=== PATIENT | female | born 1945 | race Hispanic/Latino ===

== ENCOUNTER 2016-11-29 19:35 | Observation (INO) | payer MEDICARE, OTHER ==
[2016-11-29 20:34] LABS: HEMATOCRIT 40.8 % (36.0-48.0); MEAN CELL VOLUME 88.1 fL (80.0-105.0); MEAN CORPUSCULAR HEMOGLOBIN 31.5 pg (25.0-35.0); MEAN CORPUSCULAR HGB CONC 35.8 g/dl (31.0-37.0); MEAN PLATELET VOLUME 11.2 fl (7.0-11.0); RED CELL DISTRIBUTION WIDTH 13.4 % (11.5-14.5)
--- NOTE | 2016-11-29 20:34 | ED PDOC ---
Arrival/HPI - General Chief Complaint: Chest Pain Time Seen by Provider: 11/29/16 19:43 Historian: Patient - History of Present Illness Narrative History of Present Illness (Text): 11/29/16 20:23 A 71 year old female, whose past medical history includes CAD with cardiac stents and diverticulitis, presents to the emergency department complaining of intermittent chest pressure today. Patient notes shortness of breath and dyspnea on exertion. Patient reports while recently in [place] she was diagnosed and treated for diverticulitis. Patient was placed on medications Levaquin and Flagyl. Patient reports she has experienced similar respiratory symptoms before and diagnosed with a blocked coronary artery. Patient denies any fever, chills, nausea, vomiting, diarrhea, abdominal pain, urinary symptoms , back pain or any other complaints. PMD: Dr. Ambriz Time/Duration: Other (Today) Symptom Course: Unchanged Quality: Other Context: Home Past Medical History - Provider Review Nursing Documentation Reviewed: Yes - Cardiac Hx Pacemaker: No - Pulmonary Hx Respiratory Disorders: No - Neurological Hx Neurological Disorder: No - HEENT Hx HEENT Disorder: Yes (LASER SX TO LOWER LEFT LID) - Renal Hx Renal Disorder: Yes Hx Kidney Stones: Yes - Endocrine/Metabolic Hx Diabetes Mellitus Type 2: Yes - Hematological/Oncological Hx Blood Disorders: No Hx Blood Transfusions: No - Integumentary Hx Dermatological Disorder: Yes Other/Comment: RASH - Musculoskeletal/Rheumatological Hx Musculoskeletal Disorders: Yes Hx Back Pain: Yes - Gastrointestinal Hx Gastrointestinal Disorders: Yes Hx Diverticulitis: Yes Hx Gall Bladder Disease: Yes (CHOLECYSTECTOMY) - Genitourinary/Gynecological Hx Genitourinary Disorders: Yes (TUBAL LIGATION,4 D AND C'S) - Psychiatric Hx Psychophysiologic Disorder: No Hx Substance Use: No - Surgical History Hx Cholecystectomy: Yes Hx Coronary Stent: Yes Hx Tubal Ligation: Yes - Anesthesia Hx Anesthesia Reactions: No Hx Malignant Hyperthermia: No - Suicidal Assessment Feels Threatened In Home Enviroment: No Family/Social History - Physician Review Nursing Documentation Reviewed: Yes Family/Social History: No Known Family HX Smoking Status: Never Smoked Hx Alcohol Use: Yes (WINE OCCASIONALLY) Hx Substance Use: No Allergies/Home Meds Allergies/Adverse Reactions: Allergies No Known Allergies Allergy (Verified 11/29/16 19:39) Home Medications: Home Meds Medication Instructions Recorded Confirmed Hydrocodone/Acetaminophen [[place] 1 tab PO Q4 PRN 11/29/16 11/29/16 5-325 Tablet] RX: Ondansetron [Zofran Tab] 4 mg PO Q6 11/29/16 11/29/16 RX: metroNIDAZOLE [Flagyl] 500 mg PO TID 11/29/16 11/29/16 levoFLOXacin [Levaquin] 500 mg PO DAILY 11/29/16 11/29/16 Review of Systems - Physician Review All systems were reviewed & negative as marked: Yes - Review of Systems Constitutional: absent: Fevers, Night Sweats Respiratory: SOB (/ASHBY) Cardiovascular: Chest Pain Gastrointestinal: absent: Abdominal Pain, Diarrhea, Nausea, Vomiting Genitourinary Female: absent: Dysuria, Frequency, Hematuria, Urine Output Changes Musculoskeletal: absent: Back Pain Physical Exam Vital Signs Reviewed: Yes Vital Signs Temp Pulse Resp BP Pulse Ox 11/29/16 22:02 67 16 150/80 100 11/29/16 19:44 98.4 F 67 16 166/79 H 99 Temperature: Afebrile Blood Pressure: Hypertensive Pulse: Regular Respiratory Rate: Normal Appearance: Positive for: Well-Appearing, Non-Toxic, Comfortable Pain Distress: None Mental Status: Positive for: Alert and Oriented X 3 - Systems Exam Head: Present: Atraumatic, Normocephalic Pupils: Present: PERRL Extroacular Muscles: Present: EOMI Conjunctiva: Present: Normal Mouth: Present: Moist Mucous Membranes Neck: Present: Normal Range of Motion Respiratory/Chest: Present: Clear to Auscultation, Good Air Exchange. No: Respiratory Distress, Accessory Muscle Use Cardiovascular: Present: Regular Rate and Rhythm, Normal S1, S2. No: Murmurs Abdomen: Present: Normal Bowel Sounds. No: Tenderness, Distention, Peritoneal Signs Back: Present: Normal Inspection Upper Extremity: Present: Normal Inspection. No: Cyanosis, Edema Lower Extremity: Present: Normal Inspection. No: Edema Neurological: Present: GCS=15, CN II-XII Intact, Speech Normal Skin: Present: Warm, Dry, Normal Color. No: Rashes Psychiatric: Present: Alert, Oriented x 3, Normal Insight, Normal Concentration Medical Decision Making ED Course and Treatment: 11/29/16 20:23 Impression: A 71 year old female with chest pressure and associates shortness of breath/ dyspnea on exertion. Physical exam unremarkable Plan: -- Chest xray -- EKG -- Labs -- Reassess and disposition Progress Notes: 11/29/16 21:30 Reviewed EKG, NSR at 63 bpm. Lateral T wave changes. 11/29/16 21:40 Reviewed radiology, Chest X-ray shows no acute processes. 11/29/16 22:52 Case discussed with AUTO BUMPER MECHANIC Nicolle Chan, covering for Dr. Ambriz, who is aware and agrees with plan. Pt will go to Telemetry observation for chest pain. Requests Dr. Moss on consult. - Lab Interpretations Lab Results: 11/29/16 20:25 11/29/16 20:25 Lab Results 11/29/16 20:25: WBC 6.0, RBC 4.63, Hgb 14.6, Hct 40.8, MCV 88.1, MCH 31.5, MCHC 35.8, RDW 13.4, Plt Count 180, MPV 11.2 H 11/29/16 20:25: Sodium 138, Potassium 4.8, Chloride 103, Carbon Dioxide 27, Anion Gap 13, BUN 13, Creatinine 0.7, Est GFR ( Amer) > 60, Est GFR (Non- Af Amer) > 60, Random Glucose 110, Calcium 10.0, Total Bilirubin 0.9, AST 50 H, ALT 35, Alkaline Phosphatase 90, Lactate Dehydrogenase 801 H, Total Creatine Kinase 104, Troponin I 0.03 D, NT-Pro-B Natriuret Pep 110, Total Protein 8.0, Albumin 4.3, Globulin 3.8, Albumin/Globulin Ratio 1.1 11/29/16 20:25: PT 18.5 H, INR 1.71 H, APTT 28.5 I have reviewed the lab results: Yes - RAD Interpretation Radiology Orders: 11/29/16 20:18 CHEST PORTABLE [RAD] Stat Emergency Veterinary Technician: ED Physician - EKG Interpretation Interpreted by ED Physician: Yes Type: 12 lead EKG - Medication Orders Current Medication Orders: Discontinued Medications Aspirin (Aspirin) 325 mg PO ONCE STA Stop: 11/29/16 21:59 Last Admin: 11/29/16 22:06 Dose: 325 mg - Scribe Statement The provider has reviewed the documentation as recorded by the Reyes Stuart Provider Scribe Attestation: All medical record entries made by the Laineyibdamien were at my direction and personally dictated by me. I have reviewed the chart and agree that the record accurately reflects my personal performance of the history, physical exam, medical decision making, and the department course for this patient. I have also personally directed, reviewed, and agree with the discharge instructions and disposition. Disposition/Present on Arrival - Present on Arrival Any Indicators Present on Arrival: No History of DVT/PE: No History of Uncontrolled Diabetes: No Urinary Catheter: No History of Decub. Ulcer: No History Surgical Site Infection Following: None - Disposition Have Diagnosis and Disposition been Completed?: Yes Diagnosis: Chest pain Disposition: HOSPITALIZED Disposition Time: 22:01 Patient Plan: Observation Patient Problems: Current Active Problems Problem Status Onset Chest pain Acute Condition: STABLE
[2016-11-29 20:45] LABS: ALB/GLOB RATIO 1.1 (1.1-1.8); ALKALINE PHOSPHATASE 90 U/L (38-133); ALT/SGPT 35 U/L (7-56); AST/SGOT 50 U/L (15-39); BILIRUBIN,TOTAL 0.9 mg/dL (0.2-1.3); BLOOD UREA NITROGEN 13 mg/dL (7-21); CARBON DIOXIDE 27 mmol/L (21-33); CHLORIDE 103 mmol/L (98-107); GFR AFRICAN-AMERICAN > 60; GLUCOSE,RANDOM 110 mg/dL (70-110); SODIUM 138 mmol/L (132-148)
[2016-11-29 20:47] LABS: INR 1.71 (0.93-1.08); PARTIAL THROMBOPLASTIN TIME 28.5 Seconds (23.7-30.8)
[2016-11-29 20:49] LABS: POTASSIUM 4.8 mmol/L (3.6-5.0)
[2016-11-29 20:57] LABS: TROPONIN I 0.03 ng/mL
[2016-11-30 00:09] VITALS: BMI 33.5
--- NOTE | 2016-11-30 08:36 | RAD ---
HISTORY: Chest pain COMPARISON: 09/08/2015 FINDINGS: LUNGS: The lungs are clear. PLEURA: No significant pleural effusion identified, no pneumothorax apparent. CARDIOVASCULAR: Normal. OSSEOUS STRUCTURES: No significant abnormalities. VISUALIZED UPPER ABDOMEN: Normal. OTHER FINDINGS: A broad-based opacity in the right costophrenic angle is likely related to soft tissue shadow. IMPRESSION: No acute findings. A broad-based opacity in the right costophrenic angle is likely related to soft tissue shadow. However repeat PA and lateral radiographs are recommended for further evaluation and to exclude pleural-based pathology.
[2016-11-30] MEDS ORDERED: levoFLOXacin 500 MG TAB PO SCH (10:00)
[2016-11-30] MEDS: cefTRIAXone 1 gm 1 GM/100 ML BAG IVPB SCH (10:10)
--- NOTE | 2016-11-30 10:22 | HP ---
HISTORY OF PRESENT ILLNESS: A 71-year-old white female with history of CAD, found to diverticulitis in the past. The patient recently was on vacation in [place] when she developed left lower quadrant pain, was found on CT to have diverticulitis and was put on Levaquin and Flagyl. The patient came ho me and developed some chest pressure and chest discomfort. She has a history of stents in the past, last time in 08/2016. The patient came to the Emergency Room, was admitted with indeterminate troponi n 0.03. PHYSICAL EXAMINATION: KELI SIGNS: Stable. CHEST: Clear to auscultation and percussion. HEART: Regular sinus rhythm. No S3 or murmurs. ABDOMEN: Obese, but benign. There is some mild tenderness in the left lower quadrant. EXTREMITIES: Without cyanosis, clubbing or edema. NEUROLOGIC: Grossly intact. IMPRESSION: A 71-year-old white female presenting with a recent history of several days of diverticu litis and history of coronary artery disease, presenting with chest discomfort and chest pressure, ru le out coronary artery disease. Riaz Ambriz MD cc: [id number] TT: 11/30/2016 10:21:18 fl
--- NOTE | 2016-11-30 11:24 | CON ---
DATE: 11/30/2016 HISTORY OF PRESENT ILLNESS: The patient is a 71-year-old woman who presents with intermittent abdomi nal pain. In addition, she has complained of intermittent substernal pressure over the past several weeks which is consistent with her symptoms when she came prior to her stenting of her LAD. The patient suffers from hypercholesterolemia which she stopped taking Lipitor because of leg cramps. In addition, she has borderline diabetes mellitus. She denies shortness of breath. SOCIAL HISTORY: Denies smoking. She has been taking her Plavix. REVIEW OF SYSTEMS: No addition to the ones described above. PHYSICAL EXAMINATION: VITAL SIGNS: Blood pressure is 118/60, the heart rate is in the 60s. NECK: Negative JVD. LUNGS: Without rales. HEART: Reveals S1, S2. EXTREMITIES: Without edema. EKG shows normal sinus rhythm with diffuse ST-T changes. LABORATORIES: 14.6. Chemistries: Troponins are 0.03. IMPRESSION: 1. Unstable angina. 2. Coronary artery disease. 3. History of percutaneous transluminal coronary angioplasty and stent in the past. 4. Borderline diabetes mellitus. 5. Hypercholesterolemia. Given these findings, the patient's chest pain symptoms with her description and similarity to her pr evious symptoms consistent with coronary artery disease, would indicate that a repeat catheterization may be warranted. I have discussed the risks, benefits with the patient in detail. She is agreeabl e. We will schedule for catheterization in the morning. Matthew Moss MD cc: [id number] TT: 11/30/2016 11:23:43 Confirmation # [id number] Dictation # [id number] tn
--- NOTE | 2016-11-30 16:22 | CARD ---
APPROVED REPORT EKG Measurement Heart [id number] <Conclusion> Normal sinus rhythm Moderate voltage criteria for LVH, may be normal variant T wave abnormality, consider lateral ischemia Abnormal ECG
--- NOTE | 2016-11-30 23:09 | CP.PCM.PN ---
Subjective - Date & Time of Evaluation Date of Evaluation: 11/30/16 Time of Evaluation: 23:08 - Subjective Subjective: Patient was seen at bedside for complaint of head ache, is mild for past one hour, in frontal sinus area and occipital area, thinks that it is from laying down in bed , denies history of any head injury in the past , denies nausea, dizziness, eye symptoms , ear symptoms, sinus problems, tooth ache, neck pain, paraesthesia or weakness. Medical record was reviewed. This 71 year old white woman was admitted chest pressure/discomfort. Has PMH of CAD,HLD, obesity ,diverticulitis. Objective - Vital Signs/Intake and Output Vital Signs (last 24 hours): Temp Pulse Resp BP Pulse Ox 98.2 F 64 18 141/72 98 11/30/16 18:00 11/30/16 18:00 11/30/16 18:00 11/30/16 18:00 11/30/16 05:08 Intake and Output: 11/30/16 12/01/16 18:59 06:59 Intake Total 660 Output Total 500 Balance 160 - Medications Medications: Current Medications Aspirin (Ecotrin) 81 mg PO DAILY [facility] Last Admin: 11/30/16 10:08 Dose: 81 mg Clopidogrel Bisulfate (Plavix) 75 mg PO DAILY [facility] Last Admin: 11/30/16 10:08 Dose: 75 mg Ceftriaxone Sodium (Rocephin 1 Gram Ivpb) 1 gm in 100 mls @ 100 mls/hr IVPB DAILY [facility] PRN Reason: Protocol Last Admin: 11/30/16 10:10 Dose: 100 mls/hr Metronidazole (Flagyl) 500 mg PO TID [facility] PRN Reason: Protocol Stop: 12/02/16 10:01 Last Admin: 11/30/16 17:28 Dose: 500 mg Ondansetron HCl (Zofran Tab) 4 mg PO Q6H PRN PRN Reason: Nausea/Vomiting - Labs Labs: PT 18.5 Seconds (9.9-11.8) H 11/29/16 20:25 INR 1.71 (0.93-1.08) H 11/29/16 20:25 APTT 28.5 Seconds (23.7-30.8) 11/29/16 20:25 - Constitutional Appears: Well, No Acute Distress - Head Exam Head Exam: ATRAUMATIC, NORMAL INSPECTION, NORMOCEPHALIC - Eye Exam Eye Exam: Normal appearance - ENT Exam ENT Exam: Normal External Ear Exam - Neck Exam Neck Exam: Normal Inspection - Respiratory Exam Respiratory Exam: NORMAL BREATHING PATTERN - Cardiovascular Exam Cardiovascular Exam: absent: JVD - GI/Abdominal Exam GI & Abdominal Exam: absent: Distended - Rectal Exam Rectal Exam: Deferred - Extremities Exam Extremities Exam: Normal Inspection - Back Exam Back Exam: CVA tenderness (L) - Neurological Exam Neurological Exam: Alert, Oriented x3 - Psychiatric Exam Psychiatric exam: Normal Affect, Normal Mood - Skin Skin Exam: Normal Color Assessment and Plan - Assessment and Plan (Free Text) Assessment: Head ache-Tension. Chest pressure. CAD. History of diverticulitis. HLD. Obesitiy. Plan: Tylenol 650 mg PO x 1. Continue present management.
[2016-12-01 06:10] VITALS: O2SAT 99
[2016-12-01] MEDS ORDERED: Lidocaine 2% Inj (20ml) ONE (07:39)
[2016-12-01] MEDS ORDERED: Iodixanol 320 MG/ML 200 ML BOTTLE IV ONE (07:40)
[2016-12-01] MEDS ORDERED: Iodixanol 320 MG/ML 100 ML BOTTLE IV ONE (07:40)
[2016-12-01] MEDS ORDERED: Midazolam 2 MG/2 ML VIAL ONE ×2 (08:27→08:56)
[2016-12-01] MEDS ORDERED: Iohexol 350mgl/ml 50 ML ONE (08:56)
[2016-12-01] MEDS ORDERED: Sodium Chloride 0.9% 1,000 ML IV SCH (09:45)
--- NOTE | 2016-12-01 10:01 | PN ---
DATE: 12/01/2016 SUBJECTIVE: A 71-year-old white female admitted to the hospital with diverticulitis and chest disco mfort. The patient had CAD and stent in the past. The patient was seen in consultation by Dr. Matthew Moss. It was felt, because the symptomatology was the same as before, although the troponins were n egative, the patient will be sent to the ammunition assembly ii laborer today. The patient is without complaints. No shor tness of breath, no chest pain. PHYSICAL EXAMINATION: ABDOMEN: Soft. VITAL SIGNS: She is afebrile. Vital signs are stable. Plan is for cath and possible discharge if no intervention is needed and to continue p.o. antibiotics for resolution of diverticulitis. Riaz Ambriz MD cc: [id number] TT: 12/01/2016 10:00:34 Confirmation # [id number] Dictation # [id number] tn
[2016-12-01] MEDS: cefTRIAXone 1 gm 1 GM/100 ML BAG IVPB SCH (10:31)
--- NOTE | 2016-12-01 11:03 | CARDCATH ---
PROCEDURE DATE: 12/01/2016 HISTORY: The patient is a 71-year-old woman with a history of PTCA and stent of an LAD in the past w ho presents with substernal chest pain on minimal exertion associated with shortness of breath. Because of this, cardiac catheterization was recommended. PROCEDURE: Left heart catheterization with coronary angiography and left ventriculogram. The right femoral artery was cannulated with a 6-[place] sheath. There were no complications. Findings on catheterization revealed a left ventricle that contracted normally. Estimated ejection f raction is 70%. Supra-aortic valvular injection revealed 1+ aortic insufficiency. Her coronary anatomy revealed a right dominant circulation. The RCA was free of significant disease. Left main artery was unremarkable. The LAD revealed intimal irregularities with a patent stent in the proximal/mid portion. The circumflex artery and obtuse marginal branches were free of significant disease. Angio-Seal was used to close the femoral artery site. The patient tolerated the procedure well. In summary, the procedure revealed a patent stent in the mid/proximal LAD. LV function is normal with an EF of 70%. 1+ AI was noted. Given these findings, the patient's symptoms are not cardiac in origin. Her stent is widely patent. Her echocardiogram revealed no pulmonary hypertension. We will start the patient on exercise program with cardiac rehabilitation. Matthew Moss MD cc: [id number] TT: 12/01/2016 11:02:17 myrna
[2016-12-01 17:40] VITALS: PULSE 60; RESP 20; TEMP 98.7
[2016-12-01 17:51] VITALS: BP 147/77
--- NOTE | 2016-12-02 10:57 | DS ---
The patient is a 71-year-old white female admitted to the hospital with chest discomfort, shortness o f breath. The patient has history of a stent in the past. The patient was taken to woven label designer by Dr. Matthew Moss. She had had no change in her catheterization. The patient was also admitted with right lower quadrant diverticulitis. The patient felt that possibly Levaquin contributed to her chest disc omfort. The catheterization showed a wide open patent stent. Vital signs are stable. The patient w as continued on IV antibiotics for her diverticulitis. She was discharged home on p.o. antibiotics e xcept not Levaquin. The patient will follow as an outpatient. FINAL DISCHARGE DIAGNOSES: Noncardiac chest pain, diverticulitis. Riaz Ambriz MD cc: [id number] TT: 12/02/2016 10:56:39 ne
== END 2016-12-01 18:14 | disposition home or self-care (01) ==
LOC: ED 19:35 → ERH 21:58 → 2RNO 23:38 → 2RSO 12-01 09:45
PROVIDERS: ADMIT Internal Medicine; ATTEND Internal Medicine
DX: I25.110 Atherosclerotic heart disease of native coronary artery with unstable angina pectoris (principal); I35.1 Nonrheumatic aortic (valve) insufficiency; R07.89 Other chest pain; K57.92 Diverticulitis of intestine, part unspecified, without perforation or abscess without bleeding; E78.00 Pure hypercholesterolemia, unspecified; R73.03 Prediabetes; E78.5 Hyperlipidemia, unspecified; E66.9 Obesity, unspecified; Z68.32 Body mass index [BMI] 32.0-32.9, adult; G44.209 Tension-type headache, unspecified, not intractable; Z95.5 Presence of coronary angioplasty implant and graft
CPT/HCPCS: 36415; 71010; 80053; 82550; 82948; 83615; 83880; 84484; 85027; 85610; 85730; 93005; 93458; 93567; 96365; 96376; 99152; 99285; C1760; C1769; C2629; G0378; J0696; J1644; J2250; J3010; J7030; J7040; Q9967

== ENCOUNTER 2016-12-05 21:36 | Observation (INO) | payer MEDICARE, OTHER ==
--- NOTE | 2016-12-05 22:08 | ED PDOC ---
Arrival/HPI - General Chief Complaint: Chest Pain Time Seen by Provider: 12/05/16 21:40 Historian: Patient - History of Present Illness Narrative History of Present Illness (Text): 12/05/16 22:07 Tosin Price is a 71 year old female, with a past medical history of CAD, hypertension, diabetes and diverticulitis, presents to the emergency department complaining of chest discomfort throughout the day. Patient describes discomfort as feeling of "fullness" in the chest. States symptoms mildly relieved around 7:30 pm but recurred again after eating dinner consisting of chicken noodle soup and bread. Patient was advised by , patient's foundation engineer, to present to emergency department for further evaluation. Patient was discharged from the hospital last week when she was admitted for chest pain. Denies any fever, chills, headache, dizziness, shortness of breath, nausea, vomiting, diarrhea, urinary symptoms, or any other complaints at this time. PMD: Dr. Ambriz Sports Nutritionist: Dr. Moss Time/Duration: Other (entire day today ) Symptom Onset: Gradual Symptom Course: Unchanged Severity Level: Mild Activities at Onset: Light Past Medical History - Provider Review Nursing Documentation Reviewed: Yes - Cardiac Hx Cardiac Disorders: Yes Hx Hypertension: Yes Hx Pacemaker: No - Pulmonary Hx Respiratory Disorders: No - Neurological Hx Neurological Disorder: No - HEENT Hx HEENT Disorder: Yes (LASER SX TO LOWER LEFT LID) - Renal Hx Renal Disorder: Yes Hx Kidney Stones: Yes - Endocrine/Metabolic Hx Diabetes Mellitus Type 2: Yes - Hematological/Oncological Hx Blood Transfusions: No - Integumentary Hx Dermatological Disorder: No - Musculoskeletal/Rheumatological Hx Falls: No - Gastrointestinal Hx Gastrointestinal Disorders: Yes Hx Diverticulitis: Yes Hx Gall Bladder Disease: Yes (CHOLECYSTECTOMY) - Genitourinary/Gynecological Hx Genitourinary Disorders: Yes (TUBAL LIGATION,4 D AND C'S) - Psychiatric Hx Psychophysiologic Disorder: No Hx Substance Use: No - Surgical History Hx Cardiac Catheterization: Yes Hx Cholecystectomy: Yes Hx Coronary Stent: Yes - Anesthesia Hx Anesthesia Reactions: No Hx Malignant Hyperthermia: No - Suicidal Assessment Feels Threatened In Home Enviroment: No Family/Social History - Physician Review Nursing Documentation Reviewed: Yes Family/Social History: No Known Family HX Smoking Status: Never Smoked Hx Alcohol Use: Yes (wine occassionally) Hx Substance Use: No Allergies/Home Meds Allergies/Adverse Reactions: Allergies No Known Allergies Allergy (Verified 12/06/16 06:43) Review of Systems - Physician Review All systems were reviewed & negative as marked: Yes - Review of Systems Constitutional: Normal. absent: Fatigue, Fevers Respiratory: absent: SOB, Cough, Sputum Cardiovascular: Chest Pain. absent: Palpitations Gastrointestinal: absent: Abdominal Pain, Diarrhea, Nausea, Vomiting Genitourinary Female: Normal Neurological: Normal. absent: Headache, Dizziness Psychiatric: Normal Physical Exam Vital Signs Reviewed: Yes Vital Signs Temp Pulse Resp BP Pulse Ox 12/06/16 03:33 62 99 12/05/16 21:42 98.1 F 64 16 162/84 H 98 Temperature: Afebrile Blood Pressure: Hypertensive Pulse: Regular Respiratory Rate: Normal Appearance: Positive for: Well-Appearing, Non-Toxic, Comfortable Pain Distress: None Mental Status: Positive for: Alert and Oriented X 3 - Systems Exam Head: Present: Atraumatic, Normocephalic Pupils: Present: PERRL Conjunctiva: Present: Normal Mouth: Present: Moist Mucous Membranes Respiratory/Chest: Present: Clear to Auscultation, Good Air Exchange. No: Respiratory Distress, Accessory Muscle Use Cardiovascular: Present: Regular Rate and Rhythm, Normal S1, S2. No: Murmurs Abdomen: Present: Normal Bowel Sounds. No: Tenderness, Distention, Peritoneal Signs, Rebound, Guarding Upper Extremity: Present: Normal Inspection. No: Cyanosis, Edema Lower Extremity: Present: Normal Inspection. No: Edema Neurological: Present: GCS=15, CN II-XII Intact, Speech Normal, Motor Func Grossly Intact, Normal Sensory Function Skin: Present: Warm, Dry, Normal Color. No: Rashes Psychiatric: Present: Alert, Oriented x 3, Normal Insight, Normal Concentration Medical Decision Making ED Course and Treatment: 12/05/16 22:14 Impression: A 71 year old female who presents to the emergency department complaining of chest discomfort since earlier today. Plan: -- EKG -- Labs, cardiac enzymes -- Chest X-ray -- Urinalysis -- Reassess and disposition Progress Notes: 12/06/16 00:49 Chest X-ray interpreted by me: No acute processes EKG reviewed by me: NSR @ 68 BPM. T wave abnormality, Voltage criteria for left ventricular hypertrophy. Case discussed with who is aware and agrees with the plan to observe patient at telemetry for chest pain. Accepts patient under service with on cardiology consult. - Lab Interpretations Lab Results: 12/05/16 22:32 12/05/16 22:32 Lab Results 12/05/16 22:32: Sodium 135, Potassium 3.9, Chloride 103, Carbon Dioxide 26, Anion Gap 10, BUN 12, Creatinine 0.7, Est GFR ( Amer) > 60, Est GFR (Non- Af Amer) > 60, Random Glucose 152 H, Calcium 9.5, Magnesium 2.0, Total Bilirubin 0.5, AST 37, ALT 40, Alkaline Phosphatase 75, Lactate Dehydrogenase 326 L, Total Creatine Kinase 42, Troponin I 0.01 D, NT-Pro-B Natriuret Pep 62.3 , Total Protein 6.8, Albumin 3.7, Globulin 3.1, Albumin/Globulin Ratio 1.2 12/05/16 22:32: WBC 6.4, RBC 4.43, Hgb 14.0, Hct 39.9, MCV 90.1, MCH 31.6, MCHC 35.1, RDW 13.5, Plt Count 148, MPV 11.5 H, Gran % 59.5, Lymph % (Auto) 28.4, Franklin % (Auto) 9.5 H, Eos % (Auto) 2.0, Baso % (Auto) 0.6, Gran # 3.80, Lymph # 1.8, Franklin # 0.6, Eos # 0.1, Baso # 0.04 I have reviewed the lab results: Yes - RAD Interpretation Radiology Orders: 12/05/16 22:34 CHEST TWO VIEWS (PA/LAT) [RAD] [employer] Science Instructor: ED Physician - EKG Interpretation Interpreted by ED Physician: Yes Type: 12 lead EKG - Medication Orders Current Medication Orders: Discontinued Medications Acetaminophen (Tylenol 325mg Tab) 650 mg PO Q4H PRN PRN Reason: Pain, Mild (1-3) Aspirin (Ecotrin) 81 mg PO DAILY [facility] Last Admin: 12/06/16 09:16 Dose: 81 mg Clopidogrel Bisulfate (Plavix) 75 mg PO DAILY [facility] Last Admin: 12/06/16 09:15 Dose: 75 mg Metronidazole (Flagyl) 500 mg PO TID [facility] PRN Reason: Protocol Last Admin: 12/06/16 09:15 Dose: Not Given Non-Admin Reason: Patient Refused Pantoprazole Sodium (Protonix Inj) 40 mg IVP ONCE STA Stop: 12/06/16 00:52 Last Admin: 12/06/16 01:34 Dose: 40 mg - Reyes Statement The provider has reviewed the documentation as recorded by the Reyes Perales Provider Attestation: All medical record entries made by the Reyes were at my direction and personally dictated by me. I have reviewed the chart and agree that the record accurately reflects my personal performance of the history, physical exam, medical decision making, and the department course for this patient. I have also personally directed, reviewed, and agree with the discharge instructions and disposition. Disposition/Present on Arrival - Present on Arrival Any Indicators Present on Arrival: No History of DVT/PE: No History of Uncontrolled Diabetes: No Urinary Catheter: No History of Decub. Ulcer: No History Surgical Site Infection Following: None - Disposition Have Diagnosis and Disposition been Completed?: Yes Diagnosis: Chest pain Disposition: HOSPITALIZED Disposition Time: 00:50 Condition: FAIR
[2016-12-05 22:38] LABS: ADD MANUAL DIFF? NO
[2016-12-05 22:42] LABS: BASO # 0.04 K/mm3 (0.0-2.0); BASO % 0.6 % (0.0-3.0); EOS # 0.1 (0.0-0.7); GRAN % 59.5 % (50.0-68.0); HEMATOCRIT 39.9 % (36.0-48.0); LYMPH # 1.8 (1.2-3.4); LYMPH % 28.4 % (22.0-35.0); MEAN CELL VOLUME 90.1 fL (80.0-105.0); MEAN CORPUSCULAR HEMOGLOBIN 31.6 pg (25.0-35.0); MEAN CORPUSCULAR HGB CONC 35.1 g/dl (31.0-37.0); MEAN PLATELET VOLUME 11.5 fl (7.0-11.0); MONO # 0.6 (0.1-0.6); MONO % 9.5 % (1.0-6.0); PLATELET COUNT 148 10^3/uL (120.0-450.0); RED CELL DISTRIBUTION WIDTH 13.5 % (11.5-14.5); WHITE BLOOD COUNT 6.4 10^3/ul (4.5-11.0)
[2016-12-05 22:53] LABS: ALB/GLOB RATIO 1.2 (1.1-1.8); ALKALINE PHOSPHATASE 75 U/L (38-133); ALT/SGPT 40 U/L (7-56); AST/SGOT 37 U/L (15-39); BILIRUBIN,TOTAL 0.5 mg/dL (0.2-1.3); BLOOD UREA NITROGEN 12 mg/dL (7-21); CALCIUM 9.5 mg/dL (8.4-10.5); CARBON DIOXIDE 26 mmol/L (21-33); CHLORIDE 103 mmol/L (98-107); GFR AFRICAN-AMERICAN > 60; GLUCOSE,RANDOM 152 mg/dL (70-110); POTASSIUM 3.9 mmol/L (3.6-5.0); SODIUM 135 mmol/L (132-148); TOTAL PROTEIN 6.8 g/dL (5.8-8.3)
[2016-12-05 23:06] LABS: TROPONIN I 0.01 ng/mL
[2016-12-06 04:48] VITALS: BP 125/72; RESP 18; BMI 32.9
[2016-12-06 06:02] VITALS: TEMP 97; O2SAT 97
[2016-12-06 07:32] LABS: URINE BILIRUBIN NEGATIVE (NEGATIVE); URINE BLOOD NEGATIVE (NEGATIVE); URINE GLUCOSE (UA) NEGATIVE (NEGATIVE); URINE KETONE NEGATIVE (NEGATIVE); URINE LEUKOCYTE ESTERASE SMALL Leu/uL (NEGATIVE); URINE PROTEIN NEGATIVE mg/dL (<30 mg/dL); URINE UROBILINOGEN 0.2 E.U./dL (<1 E.U./dL)
[2016-12-06 07:34] LABS: URINE APPEARANCE SL CLOUDY (CLEAR); URINE COLOR YELLOW (YELLOW)
[2016-12-06 07:50] LABS: URINE RBC NEGATIVE /hpf (0-2)
--- NOTE | 2016-12-06 08:03 | RAD ---
HISTORY: cp COMPARISON: 11/29/2016 TECHNIQUE: Chest PA and lateral FINDINGS: LUNGS: No active pulmonary disease. PLEURA: No significant pleural effusion identified. No pneumothorax apparent. The previously referenced broad-based opacity near the right costophrenic angle is no longer seen CARDIOVASCULAR: Normal. OSSEOUS STRUCTURES: Mild thoracic spondylosis and generalized osteopenia VISUALIZED UPPER ABDOMEN: Normal. OTHER FINDINGS: None. IMPRESSION: No infiltrate, pleural effusion or pulmonary vascular congestion. No interval pathology appreciated
--- NOTE | 2016-12-06 08:48 | HP ---
A 71-year-old white female with history of CAD status post stent, history of diverticulitis on Flagyl and Cipro at home. The patient had recently been in the hospital, had a patent stent on cath by Dr. Matthew Moss. The patient readmitted with abdominal pain and some chest pressure, was admitted throu gh the Emergency Room. Troponins are negative. There is no change in EKG. The case discussed with the patient. She does have some change in her stools. Her Flagyl will be discontinued. She will be able to be discharged home in improved condition to follow up as an outpatient and continue a course of Cipro until she is finished. PHYSICAL EXAMINATION: GENERAL: Shows a well-developed, but slightly obese white female in no apparent distress. HEENT: Essentially within normal limits. HEART: Regular sinus rhythm. ____ murmurs. CHEST: Clear to auscultation and percussion. ABDOMEN: Obese, but benign. There is no rebound or guarding. Bowel sounds are normoactive. There are no masses palpable. EXTREMITIES: Without cyanosis, clubbing, or edema. IMPRESSION: A 71-year-old white female with coronary artery disease, status post stent, diverticulit is, presented with nonspecific chest pain. Riaz Ambriz MD cc: [id number] TT: 12/06/2016 08:47:46 jn
--- NOTE | 2016-12-06 09:32 | CON ---
DATE: 12/06/2016 HISTORY OF PRESENT ILLNESS: The patient is a 71-year-old woman who presents with substernal chest pa in for the past 12 hours. PAST MEDICAL HISTORY: Notable for a recent cardiac catheterization which revealed nonobstructive CAD . The patient received Protonix in the Emergency Room with improvement of her symptoms. The patient's past medical history is free of an acute coronary event. SOCIAL HISTORY: Negative smoker. REVIEW OF SYSTEMS: Unremarkable. PHYSICAL EXAMINATION: VITAL SIGNS: Blood pressure is 125/72, the heart rate is in the 60s. NECK: Negative JVD. LUNGS: Without rales. HEART: Reveals S1, S2. EXTREMITIES: Without edema. LABORATORIES: Includes an EKG that shows nonspecific ST-T changes which is unchanged from a previous . Troponins are negative x 1. Glucose is 152 with a hemoglobin of 14. IMPRESSION: 1. Atypical chest pain. 2. No evidence for acute coronary syndrome. 3. Likely symptoms are gastrointestinal in nature. 4. Diabetes mellitus. Given these findings, the patient can go home on daily Protonix. The patient is agreeable to start c [facility]. Matthew Moss MD cc: [phone] TT: 12/06/2016 09:31:45 Confirmation # [id number] Dictation # [id number]
[2016-12-06 11:34] VITALS: PULSE 55
--- NOTE | 2016-12-06 14:35 | CARD ---
APPROVED REPORT EKG Measurement Heart [id number] ID [id number] <Conclusion> Normal sinus rhythm Voltage criteria for left ventricular hypertrophy T wave abnormality, consider lateral ischemia
== END 2016-12-06 11:37 | disposition home or self-care (01) ==
LOC: ED 21:36 → ERH 12-06 00:50 → 2RSO 12-06 03:43
PROVIDERS: ADMIT Internal Medicine; ATTEND Internal Medicine
DX: R07.89 Other chest pain (principal); I10 Essential (primary) hypertension; E11.9 Type 2 diabetes mellitus without complications; I25.10 Atherosclerotic heart disease of native coronary artery without angina pectoris; Z95.5 Presence of coronary angioplasty implant and graft; Z79.82 Long term (current) use of aspirin
CPT/HCPCS: 71020; 80053; 81001; 82550; 82948; 83615; 83735; 83880; 84484; 85025; 93005; 96374; 99285; C9113; G0378

== ENCOUNTER 2018-08-30 08:51 | Outpatient (CLI) | payer MEDICARE | END 2018-08-30 08:52 | disposition home or self-care (01) | LOC: RAD 08:51 ==